=== PATIENT | female | born 1975 | race Caucasian/White ===

== ENCOUNTER 2021-03-04 11:03 | Day surgery (SDCO) | payer OTHER ==
[~2021-03-04] VITALS: Ht 162.6 cm; Wt 66.5 kg
[2021-03-04 12:14] LABS: ALBUMIN 3.2 g/dL (3.4-5.0); BILIRUBIN - TOTAL 0.3 mg/dL (0.2-1.0); BUN/CREAT RATIO (CALC) 13.3 RATIO; CREATININE 0.6 mg/dL (0.51-0.95); GLOBULIN (CALCULATION) 5.4 g/dL; POTASSIUM 3.9 mmol/L (3.5-5.1); TOTAL PROTEIN 8.6 g/dL (6.4-8.2)
[2021-03-04 12:19] LABS: BASOPHIL 0.3 % (0-2); EOSINOPHIL 0.4 % (0-5); HCT 48.5 % (37.0-47.0); HGB 16.2 g/dl (12.5-16.0); LYMPHOCYTE 7.8 % (15-48); MCH 33.2 pg (25.0-31.0); MCHC 33.4 g/dL (32.0-36.0); MCV 99.4 fL (78.0-100.0); MPV 9.5 fL (6.0-9.5); NEUTROPHIL 83.9 % (41-80); NRBC 0; PLT 285 K/uL (150-400); RBC 4.88 M/uL (4.20-5.40); WBC 14.4 K/uL (4.0-10.5)
[2021-03-04 12:49] LABS: LACTIC ACID 1.3 mmol/L (0.4-1.9)
[2021-03-04] MEDS ORDERED: ADDERALL 30 MG30 MG PO (18:18)
[2021-03-04] MEDS ORDERED: AMPHETAMINE SAL30 MG PO (18:19)
[2021-03-04] MEDS ORDERED: VICODIN 10/3251 EACH PO (18:23)
[2021-03-04] MEDS ORDERED: GABAPENTIN600 MG PO (18:29)
[2021-03-04] MEDS ORDERED: DIFLUCAN150 MG PO (18:30)
[2021-03-04] MEDS ORDERED: ATIVAN1 MG PO (18:31)
[2021-03-04] MEDS ORDERED: VENTOLIN (2.5 MG/3 M INH (18:37)
[2021-03-05 06:05] LABS: BASOPHIL 0.4 % (0-2); EOSINOPHIL 0 % (0-5); HCT 43.5 % (37.0-47.0); HGB 14.4 g/dl (12.5-16.0); LYMPHOCYTE 7.7 % (15-48); MCH 33.6 pg (25.0-31.0); MCHC 33.1 g/dL (32.0-36.0); MCV 101.6 fL (78.0-100.0); MONOCYTE 5.4 % (0-12); NEUTROPHIL 85.5 % (41-80); NRBC 0; PLT 248 K/uL (150-400); RBC 4.28 M/uL (4.20-5.40); RDW 12.2 % (11.5-14.0); WBC 14.8 K/uL (4.0-10.5)
[2021-03-05 07:11] LABS: BUN/CREAT RATIO (CALC) 14.3 RATIO; CREATININE 0.63 mg/dL (0.51-0.95); POTASSIUM 4.5 mmol/L (3.5-5.1)
[2021-03-05] MEDS ORDERED: AZITHROMYCIN250 MG PO (13:27)
[2021-03-05] MEDS ORDERED: PREDNISONE 20MG20 MG PO (13:27)
[2021-03-05] MEDS ORDERED: CEFDINIR300 MG PO (13:27)
--- NOTE | 2021-03-05 15:30 | NUR ---
PT GETTING A PULSE OX TO GO HOME WITH TO MONITOR OXYGEN LEVEL, EDUCATED PT ON USE OF PULSE OX.
--- NOTE | 2021-03-05 16:06 | NUR ---
03/05/21 A referral was made to [facility] 02.
== END 2021-03-05 11:54 | disposition home or self-care (01) ==
LOC: FER 11:03 → FMS 14:28
PROVIDERS: Emergency Medicine; ADMIT Internal Medicine
DX: J44.0 Chronic obstructive pulmonary disease with (acute) lower respiratory infection (principal); J44.1 Chronic obstructive pulmonary disease with (acute) exacerbation; J18.9 Pneumonia, unspecified organism; E78.00 Pure hypercholesterolemia, unspecified; M54.9 Dorsalgia, unspecified; G89.29 Other chronic pain; Z88.0 Allergy status to penicillin; F17.210 Nicotine dependence, cigarettes, uncomplicated; Z20.822 Contact with and (suspected) exposure to COVID-19
CPT/HCPCS: 36415; 36600; 71275; 80048; 80053; 82803; 83605; 84145; 85025; 85379; 87040; 94010; 94640; 94664; G0378; J0456; J0696; J1100; J1650; J2920; J7050; Q9967; U0002